=== PATIENT | male | born 1945 | race African-American/Black ===

== ENCOUNTER 2018-09-21 16:22 | Inpatient (IN) | payer MEDICARE, MEDICAID ==
[~2018-09-21] VITALS: Ht 180.3 cm; Wt 83.5 kg
[2018-09-21] MEDS ORDERED: ARIP5TAB10 PO (16:33)
[2018-09-21] MEDS ORDERED: ACET-2154 PO (16:33)
[2018-09-21] MEDS ORDERED: TRAM50TA2 PO (16:33)
[2018-09-21] MEDS ORDERED: DIVA500T2 PO (16:33)
[2018-09-21 16:55] LABS: BASOPHILS % (AUTO) 0.6 % (0.0-2.0); EOSINOPHILS # (AUTO) 0.1 K/uL (0.0-0.7); EOSINOPHILS % (AUTO) 0.8 % (0.0-7.0); HEMOGLOBIN 14.1 g/dL (12.5-16.3); LYMPHOCYTES # (AUTO) 2.2 K/uL (20.0-40.0); LYMPHOCYTES % (AUTO) 34.8 % (20.5-51.5); MEAN CORPUSCULAR HEMOGLOBIN 30.9 uug (23.8-33.4); MEAN CORPUSCULAR HGB CONC 34 g/dL (32.5-36.3); MEAN CORPUSCULAR VOLUME 89.7 fL (73.0-96.2); MONOCYTES # (AUTO) 0.5 K/uL (2.0-10.0); MONOCYTES % (AUTO) 7.5 % (0.0-11.0); NEUTROPHILS # (AUTO) 3.6 K/uL (1.8-8.9); NEUTROPHILS % (AUTO) 56.3 % (38.5-71.5); PLATELET COUNT (AUTO) 216 K/uL (152-348); RED BLOOD CELL COUNT(AUTO) 4.57 MIL/uL (4.06-5.63); WHITE BLOOD COUNT (AUTO) 6.4 K/uL (3.6-10.2)
[2018-09-21 17:06] LABS: CARBON DIOXIDE 27 mmol/L (21-32); CHLORIDE 103 mmol/L (98-107); CREATININE 0.8 mg/dL (0.6-1.3); GLUCOSE 101 mg/dL (74-106); POTASSIUM 4.4 mmol/L (3.5-5.1); UREA NITROGEN, BLOOD 17 mg/dL (7-18)
[2018-09-21 17:17] LABS: ETHANOL < 3 MG/DL (0-0)
[2018-09-21 17:19] LABS: THYROID STIMULATING HORMONE 0.798 mIU/mL (0.358-3.740)
[2018-09-21 17:23] LABS: ACETAMINOPHEN < 2.0 ug/mL (10-30); ALANINE AMINOTRANSFERASE 19 U/L (16-63); ALKALINE PHOSPHATASE 52 U/L (50-136); ASPARTATE AMINOTRANSFERASE 9 U/L (15-37); BILIRUBIN,DIRECT < 0.1 mg/dL (0.0-0.2); BILIRUBIN,TOTAL 0.2 mg/dL (0.2-1.0); TOTAL PROTEIN, SERUM 7.3 g/dL (6.4-8.2)
[2018-09-21 17:48] LABS: *BILIRUBIN,URIN NEGATIVE (NEGATIVE); *BLOOD, URINE NEGATIVE (NEGATIVE); *CLARITY,URINE CLEAR (CLEAR); *COLOR,URINE YELLOW (YELLOW); *KETONES,URINE NEGATIVE (NEGATIVE); *PROTEIN,URINE NEGATIVE (NEGATIVE); *UROBILINOGEN,URINE 0.2 E.U./dl (NORMAL); LEUKOCYTE ESTERASE ,URINE NEGATIVE (NEGATIVE); NITRITE, URINE NEGATIVE (NEGATIVE); PH,URINE 7.5 (5.0-8.0); UGLUCOSE NEGATIVE (NEGATIVE)
[2018-09-21 17:54] LABS: *URINE HCG, QUAL NEGATIVE
[2018-09-21 18:03] LABS: BACTERIA,URINE NONE SEEN /HPF (NONE SEEN); RBC,URINE 0-3 /HPF (0-3); SQUAMOUS EPITHELIAL CELL,UR FEW /HPF (NONE SEEN); WBC,URINE 0-3 /HPF (0-3)
[2018-09-21] MEDS ORDERED: ACETAMINOPHEN 325 MG TABLET PO PRN (18:45)
[2018-09-21] MEDS ORDERED: LORAZEPAM 1 MG TABLET PO PRN (18:45)
[2018-09-21] MEDS ORDERED: MAGNESIUM HYDROXIDE 30 ML LIQUID UDC PO PRN (18:45)
[2018-09-21] MEDS ORDERED: MAG HYDROX/AL HYDROX/SIMETH 30 ML LIQUID UDC PO PRN (18:45)
[2018-09-21 19:20] LABS: *AMPHETAMINE, URINE NEGATIVE (NEGATIVE); *BARBITURATE, URINE NEGATIVE (NEGATIVE); *CANNABINOID, URINE NEGATIVE (NEGATIVE); *COCCAINE, URINE NEGATIVE (NEGATIVE); *OPIATE, URINE NEGATIVE (NEGATIVE); *PHENCYCLIDINE SCREEN,URINE NEGATIVE (NEGATIVE)
[2018-09-21 20:22] VITALS: BP 134/93
[2018-09-22 08:00] VITALS: BP 99/65
[2018-09-22] MEDS ORDERED: ACETAMINOPHEN 325 MG TABLET PO PRN (14:15)
[2018-09-22 16:00] VITALS: BP 106/64
[2018-09-22 19:30] VITALS: BP 99/55
[2018-09-22] MEDS: DIVALPROEX 500 MG TABLET.DR PO SCH (20:17)
[2018-09-22] MEDS: ARIPIPRAZOLE 5 MG TABLET PO SCH (20:17)
[2018-09-23 07:30] VITALS: BP 115/72
[2018-09-23] MEDS: ARIPIPRAZOLE 5 MG TABLET PO SCH ×2 (08:31→20:32)
[2018-09-23] MEDS: DIVALPROEX 500 MG TABLET.DR PO SCH ×2 (08:31→20:32)
[2018-09-23] MEDS ORDERED: ARIPIPRAZOLE 5 MG TABLET PO SCH (09:00)
[2018-09-23] MEDS ORDERED: PNEUMOCOCCAL 23-VAL P-SAC VAC 0.5 ML VIAL IM ONE (13:00)
[2018-09-23 16:07] VITALS: BP 112/66
[2018-09-23 19:30] VITALS: BP_SYST 112; BP_SYST 99; BP_DIAS 66; BP_DIAS 67
[2018-09-24 07:30] VITALS: BP 115/73
[2018-09-24] MEDS: ARIPIPRAZOLE 5 MG TABLET PO SCH ×2 (08:13→21:05)
[2018-09-24] MEDS: DIVALPROEX 500 MG TABLET.DR PO SCH ×2 (08:13→21:06)
[2018-09-24 16:13] VITALS: BP 113/70
[2018-09-24] MEDS ORDERED: MIRTAZAPINE 15 MG TABLET PO SCH (21:00)
[2018-09-24] MEDS: MIRTAZAPINE 15 MG TABLET PO SCH (21:06)
[2018-09-24 21:25] VITALS: BP 117/75
[2018-09-24] MEDS: TEMAZEPAM 7.5 MG CAPSULE PO PRN (22:29)
[2018-09-25 07:30] VITALS: BP 113/68
[2018-09-25] MEDS: DIVALPROEX 500 MG TABLET.DR PO SCH ×2 (08:08→20:06)
[2018-09-25] MEDS: ARIPIPRAZOLE 5 MG TABLET PO SCH (08:08)
[2018-09-25 16:00] VITALS: BP 98/52
[2018-09-25] MEDS: MIRTAZAPINE 15 MG TABLET PO SCH (20:06)
[2018-09-25 20:49] VITALS: BP 104/64
[2018-09-25] MEDS: ARIPIPRAZOLE 10 MG TABLET PO SCH (21:05)
[2018-09-26 07:30] VITALS: BP 113/72
[2018-09-26] MEDS: ARIPIPRAZOLE 5 MG TABLET PO SCH (08:28)
[2018-09-26] MEDS: DIVALPROEX 500 MG TABLET.DR PO SCH ×2 (08:29→20:06)
[2018-09-26 16:16] VITALS: BP 128/75
[2018-09-26] MEDS: ARIPIPRAZOLE 10 MG TABLET PO SCH (20:06)
[2018-09-26] MEDS: MIRTAZAPINE 15 MG TABLET PO SCH (20:06)
[2018-09-26 20:56] VITALS: BP 123/75
[2018-09-27 07:30] VITALS: BP 135/95
[2018-09-27] MEDS: DIVALPROEX 500 MG TABLET.DR PO SCH ×2 (09:07→20:25)
[2018-09-27] MEDS: ARIPIPRAZOLE 5 MG TABLET PO SCH (09:07)
[2018-09-27 16:00] VITALS: BP 114/90
[2018-09-27 20:00] VITALS: BP 125/82
[2018-09-27] MEDS: MIRTAZAPINE 15 MG TABLET PO SCH (20:25)
[2018-09-27] MEDS: ARIPIPRAZOLE 10 MG TABLET PO SCH (20:25)
[2018-09-28] MEDS: TEMAZEPAM 7.5 MG CAPSULE PO PRN (01:14)
[2018-09-28 08:00] VITALS: BP 141/87
[2018-09-28] MEDS: DIVALPROEX 500 MG TABLET.DR PO SCH ×2 (09:19→20:16)
[2018-09-28] MEDS: ARIPIPRAZOLE 5 MG TABLET PO SCH (09:19)
[2018-09-28 16:43] VITALS: BP 140/80
[2018-09-28 20:00] VITALS: BP 149/98
[2018-09-28] MEDS: ARIPIPRAZOLE 10 MG TABLET PO SCH (20:16)
[2018-09-28] MEDS: MIRTAZAPINE 15 MG TABLET PO SCH (20:16)
[2018-09-29 07:30] VITALS: BP 144/69
[2018-09-29] MEDS: ARIPIPRAZOLE 5 MG TABLET PO SCH (08:33)
[2018-09-29] MEDS: DIVALPROEX 500 MG TABLET.DR PO SCH ×2 (08:33→21:00)
[2018-09-29 16:41] VITALS: BP 140/70
[2018-09-29 20:06] VITALS: BP 99/66
[2018-09-29] MEDS: MIRTAZAPINE 15 MG TABLET PO SCH (21:00)
[2018-09-29] MEDS: ARIPIPRAZOLE 10 MG TABLET PO SCH (21:00)
[2018-09-30] MEDS: DIVALPROEX 500 MG TABLET.DR PO SCH (08:28)
[2018-09-30] MEDS: ARIPIPRAZOLE 5 MG TABLET PO SCH (08:28)
[2018-09-30 08:57] VITALS: BP 135/78
== END 2018-09-30 02:00 | DRG 885 ==
LOC: ER 16:25 → GPS 17:44
PROVIDERS: ADMIT Psychiatry & Neurology Psychiatry
DX: F25.9 Schizoaffective disorder, unspecified (principal); Z87.820 Personal history of traumatic brain injury; L60.2 Onychogryphosis; R25.1 Tremor, unspecified; I67.2 Cerebral atherosclerosis; D32.9 Benign neoplasm of meninges, unspecified; Z65.2 Problems related to release from prison
CPT/HCPCS: 36415; 70030-TC; 70450; 71045; 72170; 80164; 80307; 84443; 84703; 85025; 85730; 87086; 90732; 93005; A4663; G0480; G0480-TC